=== PATIENT | female | born 1975 | race Caucasian/White ===

== ENCOUNTER 2016-12-13 00:23 | Inpatient (IN) | payer OTHER ==
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
[2016-12-13 00:45] VITALS: BMI 20.4
[2016-12-13] MEDS ORDERED: DIPHTH,PERTUSS(ACELL),TET VAC 0.5 ML VIAL IM ONE (00:45)
[2016-12-13] MEDS ORDERED: BACITRACIN 15 GM TUBE TOPICAL OINTMENT TP ONE (00:46)
[2016-12-13 08:24] LABS: MCH 33.9 pg (25.7-33.7); MCHC 33.8 g/dl (32.0-36.0); MEAN CELL VOLUME 100.4 fl (80-96); MEAN PLT VOLUME 7.1 fl (7.5-11.1); PLATELET COUNT 395 K/MM3 (134-434); RDW 14.3 % (11.6-15.6); WHITE BLOOD COUNT 5.3 K/mm3 (4.0-10.0)
[2016-12-13] MEDS ORDERED: SODIUM CHLORIDE 0.9% 1000 ML INFUS.BAG IV ONE (08:37)
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
[2016-12-13 08:44] LABS: ALBUMIN 3.7 g/dl (3.4-5.0); ANION GAP 4 (8-16); BILIRUBIN,TOTAL 0.4 mg/dL (0.2-1.0); CALCIUM 8.6 mg/dL (8.5-10.1); CO2 29 mmol/L (21-32); CREATININE 0.6 mg/dL (0.55-1.02); GLUCOSE,RANDOM 77 mg/dL (74-106); SGOT/AST 21 U/L (15-37); SGPT/ALT 20 U/L (12-78); TOT PROT 7.7 g/dl (6.4-8.2)
[2016-12-13 08:45] LABS: ALK PHOS 55 U/L (45-117)
--- NOTE | 2016-12-13 08:58 | PDOC ---
*Physical Exam - Vital Signs Dr. Newton states Pt took a handful of pills from her pill bottle (Rx for quetiapine). On our count there are 61 pills left in the bottle, meaning 29 are gone. She filled the Rx on 12/09/16 and is supposed to be on a taper-on per the following schedule: 1 pill qBedtime for 5 days, then 1 pill bid for 5 days, then 1 pill qAM and 2 pills qBedtime indefinitely. Per this schedule she should only be missing 3-5 pills from the bottle but she is missing 29. Notably there are also #7 Klonopin 1mg pills in the bottle mixed in. Last Vital Signs Temp Pulse Resp BP Pulse Ox 91 H 14 88/53 96 12/13/16 07:35 12/13/16 07:35 12/13/16 07:35 12/13/16 07:35 <Liz Sanford - Last Filed: 12/13/16 12:37> - Vital Signs Last Vital Signs Temp Pulse Resp BP Pulse Ox 96 H 14 107/69 100 12/13/16 11:01 12/13/16 11:01 12/13/16 11:01 12/13/16 11:01 <Gloria Abdi - Last Filed: 12/13/16 13:43> Heart Score/ECG Review #1 General ECG Interpretation: Sinus Rhythm, Normal Rate (89), Normal Intervals, No acute ischemic changes Compared to previous ECG there are: No significant change 12/13/16 13:[address] elevation or depression. normal qtc 474 <Gloria Abdi - Last Filed: 12/13/16 13:43> ED Treatment Course - LABORATORY CBC & Chemistry Diagram: 12/13/16 08:15 12/13/16 08:20 <Liz Sanford - Last Filed: 12/13/16 12:37> - LABORATORY CBC & Chemistry Diagram: 12/13/16 08:15 12/13/16 08:20 - ADDITIONAL ORDERS Additional order review: Laboratory Results 12/13/16 12/13/16 12/13/16 08:20 08:20 08:15 Sodium 143 Potassium 4.1 Chloride 110 H D Carbon Dioxide 29 Anion Gap 4 L BUN 10 D Creatinine Cancelled 0.6 Creat Clearance w eGFR > 60 Random Glucose 77 Specific [place] Cancelled Calcium 8.6 Total Bilirubin 0.4 D AST 21 D ALT 20 D Alkaline Phosphatase 55 D Total Protein 7.7 Albumin 3.7 Urine HCG, Qual Negative Urine Butalbital Cancelled Ur Butalbital Confirm Cancelled Salicylates Opiates Screen Urine Opiates Screen Cancelled Meperidine Cancelled Urine Normeperidine Cancelled U Normeperidine GC/MS Cancelled Urine Codeine Cancelled U Codeine Confrm GC/MS Cancelled Urine Morphine Cancelled Morphine Confirm GC/MS Cancelled Urine Hydrocodone Cancelled Ur Hydrocodone (GC/MS) Cancelled Oxycodone Cancelled Urine Oxycodone Cancelled Ur Oxycodone GC/MS Cancelled Oxymorphone Confirm Cancelled U Oxycodone/Oxymorphon Cancelled Methadone Screen Ur Methadone Cancelled Ur Methadone Confirm Cancelled Ur Hydromorphone Cancelled Ur Hydromorphone (GC/MS) Cancelled Urine Propoxyphene Cancelled U Propoxyphene/M GC/MS Cancelled Acetaminophen Barbiturate Screen Ur Barbiturates Screen Cancelled Urine Barbiturates Cancelled Phencyclidine Screen Ur Phencyclidine (PCP) Cancelled Ur PCP Confirm (GC/MS) Cancelled Amphetamines Cancelled Amphetamines Grp GC/MS Cancelled Ur Amphetamines Screen Urine Amphetamine Cancelled Ur Amphetamines, Quant Cancelled Methamphetamine Cancelled Methamphetamine GC/MS Cancelled MDMA (Ecstasy) Screen Urine Amobarbital Cancelled Ur Amobarbital GC/MS Cancelled Urine Pentobarbital Cancelled U Pentobarbital GC/MS Cancelled Urine Phenobarbital Cancelled U Phenobarbital GC/MS Cancelled Urine Secobarbital Cancelled U Secobarbital GC/MS Cancelled Urine Alprazolam Cancelled U [place]-Alprazolam GC/MS Cancelled Benzodiazepines Screen U Benzodiazepines Scrn Cancelled Urine Clonazepam Cancelled U 7-Amino Clonazep GC/MS Cancelled Ur Nordiazepam Cancelled Ur Nordiazepam GC/MS Cancelled Flurazepam Cancelled Flurazepam Confirm Cancelled Lorazepam Cancelled Urine Lorazepam Cancelled Ur Oxazepam Cancelled U Oxazepam Confm GC/MS Cancelled Urine Temazepam Cancelled Ur Temazepam (GC/MS) Cancelled Urine Triazolam Cancelled Ur Triazolam (GC/MS) Cancelled Meperidine (GC/MS) Cancelled Ur Meperidine Cancelled Cocaine Screen Cocaine & Metabolite Cancelled Urine Cocaine Cancelled Benzoylecgonine Cancelled Cannabinoids Cancelled Urine Cannabinoids Cancelled U Marijuana (THC) Screen Urine Marijuana (THC) Cancelled Drug Test Comment Cancelled Alcohol, Quantitative Urine Ethyl Alcohol Cancelled 12/13/16 12/13/16 08:15 08:00 Sodium Potassium Chloride Carbon Dioxide Anion Gap BUN Creatinine Creat Clearance w eGFR Random Glucose Specific [place] Calcium Total Bilirubin AST ALT Alkaline Phosphatase Total Protein Albumin Urine HCG, Qual Urine Butalbital Ur Butalbital Confirm Salicylates < 4.0 Opiates Screen Negative Urine Opiates Screen Meperidine Urine Normeperidine U Normeperidine GC/MS Urine Codeine U Codeine Confrm GC/MS Urine Morphine Morphine Confirm GC/MS Urine Hydrocodone Ur Hydrocodone (GC/MS) Oxycodone Urine Oxycodone Ur Oxycodone GC/MS Oxymorphone Confirm U Oxycodone/Oxymorphon Methadone Screen Negative Ur Methadone Ur Methadone Confirm Ur Hydromorphone Ur Hydromorphone (GC/MS) Urine Propoxyphene U Propoxyphene/M GC/MS Acetaminophen < 2.000 L Barbiturate Screen Negative Ur Barbiturates Screen Urine Barbiturates Phencyclidine Screen Negative Ur Phencyclidine (PCP) Ur PCP Confirm (GC/MS) Amphetamines Amphetamines Grp GC/MS Ur Amphetamines Screen Negative Urine Amphetamine Ur Amphetamines, Quant Methamphetamine Methamphetamine GC/MS MDMA (Ecstasy) Screen Negative Urine Amobarbital Ur Amobarbital GC/MS Urine Pentobarbital U Pentobarbital GC/MS Urine Phenobarbital U Phenobarbital GC/MS Urine Secobarbital U Secobarbital GC/MS Urine Alprazolam U [place]-Alprazolam GC/MS Benzodiazepines Screen Negative U Benzodiazepines Scrn Urine Clonazepam U 7-Amino Clonazep GC/MS Ur Nordiazepam Ur Nordiazepam GC/MS Flurazepam Flurazepam Confirm Lorazepam Urine Lorazepam Ur Oxazepam U Oxazepam Confm GC/MS Urine Temazepam Ur Temazepam (GC/MS) Urine Triazolam Ur Triazolam (GC/MS) Meperidine (GC/MS) Ur Meperidine Cocaine Screen Positive Cocaine & Metabolite Urine Cocaine Benzoylecgonine Cannabinoids Urine Cannabinoids U Marijuana (THC) Screen Negative Urine Marijuana (THC) Drug Test Comment Alcohol, Quantitative 133.0 H* Urine Ethyl Alcohol 12/13/16 08:15 RBC 4.27 MCV 100.4 H MCHC 33.8 RDW 14.3 MPV 7.1 L D Neutrophils % No Result Required. Lymphocytes % No Result Required. - RADIOLOGY Radiology Studies Ordered: Category Date Time Status FACIAL BONES CT W/O CONTRAST [CT] Stat CT Scan 12/13/16 08:[address] WITHOUT CONTRAST [CT] Stat CT Scan 12/13/16 08:33 Completed KNEE 2 POS-LEFT [RAD] Stat Radiology 12/13/16 08:37 Completed - Medications Given in the ED: ED Medications Discontinued Medications Generic Name Dose Route Start Last Admin Trade Name Freq PRN Reason Stop Dose Admin Sodium Chloride 1,000 ml 12/13/16 08:37 12/13/16 08:46 Normal Saline - IV 12/13/16 08:38 1,000 ml ONCE ONE Administration <Gloria Abdi - Last Filed: 12/13/16 13:43> Medical Decision Making - Medical Decision Making 12/13/16 09:02 Spoke with Poison Brilliandeer Lopper Christina. Questiapine: TUBE KNITTER depression, seizures, QTc prolongation, hypotension. Clonazepam: TUBE KNITTER depression, respiratory depression. Treatment is TUBE KNITTER and supportive, seizure precautions. If quetiapine is ER the patient should be watched for 12h. If quetiapine is not ER she should be watched until asymptomatic. <Liz Sanford - Last Filed: 12/13/16 12:37> *DC/Admit/Observation/Transfer <Sanford,Liz - Last Filed: 12/13/16 12:37> - Discharge Dispostion Decision to Admit order Date/Time: Decision to Admit Order Category Date Time Status Decision to Admit to Hospital Routine Admission 12/13/16 13:01 Active <Gloria Abdi - Last Filed: 12/13/16 13:43> Diagnosis at time of Disposition: Psychosis, Overdose, Substance abuse - Discharge Dispostion Condition at time of disposition: Guarded - Referrals Referrals: STAFF,NOT ON [Primary Care Provider] - - Patient Instructions - Post Discharge Activity
[2016-12-13 08:59] LABS: SALICYLATE < 4.0 mg/dl (0.0-30.0)
[2016-12-13 09:05] LABS: URINE MARIJUANA THC NEGATIVE ng/ml (CUTOFF=50)
[2016-12-13 10:57] LABS: BASOPHIL (MANUAL) 4 % (0-2.0); PLATELET ESTIMATE ADEQUATE (NORMAL); TOTAL CELLS COUNTED 100
[2016-12-13] MEDS ORDERED: DEXTROSE 5%-NORMAL SALINE 1,000 ML IV SCH (14:00)
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
[2016-12-13] MEDS ORDERED: HEPARIN NA (PORCINE) 5,000 UNITS/ML 1ML VIAL SQ SCH (14:15)
[2016-12-13] MEDS ORDERED: FOLIC ACID INJECTION - 1 MG, THIAMINE HCL 100 MG, MULTIVIT INJECTION ADULT 10 ML in SOD... IVPB ONE (20:38)
[2016-12-13] MEDS: BACITRACIN 15 GM TUBE TOPICAL OINTMENT TP SCH (21:36)
[2016-12-13] MEDS: levETIRAcetam XR 500 MG TAB PO SCH (21:36)
[2016-12-13] MEDS ORDERED: levETIRAcetam 500 MG/5 ML INJECTION VIAL IVPB SCH (22:00)
[2016-12-14 07:23] LABS: BASOPHIL 2.3 % (0-2.0); EOSINOPHIL 7.4 % (0-4.5); MCH 32.8 pg (25.7-33.7); MCHC 32.5 g/dl (32.0-36.0); MEAN CELL VOLUME 100.9 fl (80-96); MEAN PLT VOLUME 7.8 fl (7.5-11.1); NEUTROPHILS 37.4 % (42.8-82.8); PLATELET COUNT 349 K/MM3 (134-434); RDW 13.9 % (11.6-15.6); WHITE BLOOD COUNT 4.9 K/mm3 (4.0-10.0)
[2016-12-14 08:05] LABS: ALBUMIN 2.8 g/dl (3.4-5.0); ANION GAP 7 (8-16); BILIRUBIN,TOTAL 0.6 mg/dL (0.2-1.0); CO2 25 mmol/L (21-32); CREATININE 0.7 mg/dL (0.55-1.02); GLUCOSE,RANDOM 72 mg/dL (74-106); MAGNESIUM 2.1 mg/dL (1.8-2.4); PHOSPHOROUS 3.4 mg/dL (2.5-4.9); SGOT/AST 16 U/L (15-37); SGPT/ALT 16 U/L (12-78); TOT PROT 5.8 g/dl (6.4-8.2)
[2016-12-14 08:06] LABS: ALK PHOS 47 U/L (45-117)
[2016-12-14 08:19] LABS: HIV 1 & 2 AB NEGATIVE; HIV 1 AGp24 NEGATIVE
--- NOTE | 2016-12-14 08:39 | EKG ---
Test Reason : Blood Pressure : / mmHG Vent. Rate : 080 BPM Atrial Rate : 080 BPM P-R Int : 164 ms QRS Dur : 088 ms QT Int : 404 ms P-R-T Axes : 064 098 065 degrees QTc Int : 465 ms NORMAL SINUS RHYTHM POSSIBLE LEFT ATRIAL ENLARGEMENT RIGHTWARD AXIS RSR' OR QR PATTERN IN V1 SUGGESTS RIGHT VENTRICULAR CONDUCTION DELAY Confirmed by MD TESSY, JAMI ([id number]) on 12/14/2016 8:39:37 AM Referred By: Confirmed By:JAMI STILL MD
--- NOTE | 2016-12-14 08:40 | EKG ---
Test Reason : Blood Pressure : / mmHG Vent. Rate : 089 BPM Atrial Rate : 089 BPM P-R Int : 164 ms QRS Dur : 082 ms QT Int : 390 ms P-R-T Axes : 063 094 061 degrees QTc Int : 474 ms NORMAL SINUS RHYTHM POSSIBLE LEFT ATRIAL ENLARGEMENT RIGHTWARD AXIS Confirmed by MD TESSY, JAMI ([id number]) on 12/14/2016 8:40:08 AM Referred By: Confirmed By:JAMI STILL MD
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
[2016-12-14] MEDS ORDERED: PT OWN MED DRAWER 7, Y5N ONE (10:48)
[2016-12-14] MEDS: FOLIC ACID 1 MG TABLET (FP) PO SCH (10:51)
[2016-12-14] MEDS: levETIRAcetam XR 500 MG TAB PO SCH (10:51)
[2016-12-14] MEDS: THIAMINE HCL 100 MG TABLET (FP) PO SCH (10:51)
[2016-12-14] MEDS: BACITRACIN 15 GM TUBE TOPICAL OINTMENT TP SCH ×2 (12:25→21:54)
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
[2016-12-14] MEDS: ENOXAPARIN NA (PORCINE) 40 MG/0.4 ML DISP.SYRIN SQ SCH (17:23)
[2016-12-14] MEDS ORDERED: LORazepam 2 MG/ML SDV VIAL ONE (20:43)
[2016-12-14] MEDS: NICOTINE 21 MG/24 HOURS TOPICAL PATCH TD SCH (20:49)
[2016-12-14] MEDS ORDERED: chlordiazePOXIDE HCL 25 MG CAPSULE PO PRN (22:32)
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
[2016-12-14] MEDS: chlordiazePOXIDE HCL 25 MG CAPSULE PO SCH (23:02)
[2016-12-15] MEDS: chlordiazePOXIDE HCL 25 MG CAPSULE PO SCH ×2 (06:15→10:49)
[2016-12-15 07:35] LABS: BASOPHIL 1.5 % (0-2.0); EOSINOPHIL 5.8 % (0-4.5); MCH 33.2 pg (25.7-33.7); MCHC 33.2 g/dl (32.0-36.0); MEAN CELL VOLUME 100.1 fl (80-96); MEAN PLT VOLUME 7.9 fl (7.5-11.1); NEUTROPHILS 41.3 % (42.8-82.8); PLATELET COUNT 366 K/MM3 (134-434); RDW 13.8 % (11.6-15.6)
[2016-12-15 08:41] LABS: ALBUMIN 2.9 g/dl (3.4-5.0); ALK PHOS 48 U/L (45-117); ANION GAP 9 (8-16); BILIRUBIN,TOTAL 0.4 mg/dL (0.2-1.0); CALCIUM 8.2 mg/dL (8.5-10.1); CO2 25 mmol/L (21-32); CREATININE 0.6 mg/dL (0.55-1.02); GLUCOSE,RANDOM 92 mg/dL (74-106); PHOSPHOROUS 3.3 mg/dL (2.5-4.9); SGOT/AST 22 U/L (15-37); SGPT/ALT 18 U/L (12-78)
[2016-12-15] MEDS: FOLIC ACID 1 MG TABLET (FP) PO SCH (09:31)
[2016-12-15] MEDS: BACITRACIN 15 GM TUBE TOPICAL OINTMENT TP SCH (09:31)
[2016-12-15] MEDS: ENOXAPARIN NA (PORCINE) 40 MG/0.4 ML DISP.SYRIN SQ SCH (09:32)
[2016-12-15] MEDS: levETIRAcetam XR 500 MG TAB PO SCH (09:32)
[2016-12-15] MEDS: NICOTINE 21 MG/24 HOURS TOPICAL PATCH TD SCH (09:33)
[2016-12-15 10:44] VITALS: BP 120/60; PULSE 76; TEMP 98
[2016-12-15] MEDS: THIAMINE HCL 100 MG TABLET (FP) PO SCH (10:48)
--- NOTE | 2016-12-15 10:54 | EKG ---
Test Reason : Blood Pressure : / mmHG Vent. Rate : 083 BPM Atrial Rate : 083 BPM P-R Int : 156 ms QRS Dur : 080 ms QT Int : 388 ms P-R-T Axes : 050 089 052 degrees QTc Int : 455 ms NORMAL SINUS RHYTHM NORMAL ECG WHEN COMPARED WITH ECG OF 14-DEC-2016 08:43, NO SIGNIFICANT CHANGE WAS FOUND Confirmed by CHAY MARRUFO MD ([id number]) on 12/15/2016 10:53:33 AM Referred By: ANA BARRIENTOS Confirmed By:CHAY MARRUFO MD
--- NOTE | 2016-12-15 11:24 | EKG ---
Test Reason : Blood Pressure : / mmHG Vent. Rate : 080 BPM Atrial Rate : 080 BPM P-R Int : 172 ms QRS Dur : 086 ms QT Int : 402 ms P-R-T Axes : 058 093 055 degrees QTc Int : 463 ms NORMAL SINUS RHYTHM RIGHTWARD AXIS BORDERLINE ECG WHEN COMPARED WITH ECG OF 13-DEC-2016 20:56, NO SIGNIFICANT CHANGE WAS FOUND Confirmed by CHAY MARRUFO MD ([id number]) on 12/15/2016 11:24:37 AM Referred By: Confirmed By:CHAY MARRUFO MD
--- NOTE | 2016-12-15 11:24 | EKG ---
Test Reason : Blood Pressure : / mmHG Vent. Rate : 069 BPM Atrial Rate : 069 BPM P-R Int : 172 ms QRS Dur : 084 ms QT Int : 420 ms P-R-T Axes : 060 092 062 degrees QTc Int : 450 ms NORMAL SINUS RHYTHM RIGHTWARD AXIS BORDERLINE ECG WHEN COMPARED WITH ECG OF 14-DEC-2016 02:28, NO SIGNIFICANT CHANGE WAS FOUND Confirmed by CHAY MARRUFO MD ([id number]) on 12/15/2016 11:24:26 AM Referred By: Confirmed By:CHAY MARRUFO MD
--- NOTE | 2016-12-15 11:24 | EKG ---
Test Reason : Blood Pressure : / mmHG Vent. Rate : 071 BPM Atrial Rate : 071 BPM P-R Int : 178 ms QRS Dur : 080 ms QT Int : 422 ms P-R-T Axes : 069 098 072 degrees QTc Int : 458 ms NORMAL SINUS RHYTHM RIGHTWARD AXIS BORDERLINE ECG WHEN COMPARED WITH ECG OF 14-DEC-2016 06:31, NO SIGNIFICANT CHANGE WAS FOUND Confirmed by CHAY MARRUFO MD ([id number]) on 12/15/2016 11:24:18 AM Referred By: SHONA WALTON Confirmed By:CHAY MARRUFO MD
--- NOTE | 2016-12-15 11:25 | EKG ---
Test Reason : Blood Pressure : / mmHG Vent. Rate : 083 BPM Atrial Rate : 083 BPM P-R Int : 166 ms QRS Dur : 082 ms QT Int : 390 ms P-R-T Axes : 060 096 061 degrees QTc Int : 458 ms NORMAL SINUS RHYTHM RIGHTWARD AXIS BORDERLINE ECG WHEN COMPARED WITH ECG OF 13-DEC-2016 15:17, NO SIGNIFICANT CHANGE WAS FOUND Confirmed by CHAY MARRUFO MD ([id number]) on 12/15/2016 11:24:46 AM Referred By: Confirmed By:CHAY MARRUFO MD
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
[2016-12-15] MEDS ORDERED: chlordiazePOXIDE HCL 25 MG CAPSULE PO SCH (23:00)
[2016-12-16] MEDS ORDERED: chlordiazePOXIDE 5 MG CAPSULE PO SCH (23:00)
== END 2016-12-15 13:24 | disposition left against medical advice (07) | DRG 812 ==
LOC: JER 00:23 → SUPCPDRO 00:23 → JERBED 13:01 → J4W 19:06 → OBSVTOIN 12-15 07:55
PROVIDERS: ADMIT Internal Medicine; ATTEND Internal Medicine
DX: T43.592A Poisoning by other antipsychotics and neuroleptics, intentional self-harm, initial encounter (principal); F29 Unspecified psychosis not due to a substance or known physiological condition; S80.212A Abrasion, left knee, initial encounter; S01.81XA Laceration without foreign body of other part of head, initial encounter; F14.10 Cocaine abuse, uncomplicated; F10.230 Alcohol dependence with withdrawal, uncomplicated; F11.10 Opioid abuse, uncomplicated; F31.9 Bipolar disorder, unspecified; R56.9 Unspecified convulsions; Y92.89 Other specified places as the place of occurrence of the external cause; I95.9 Hypotension, unspecified; F41.9 Anxiety disorder, unspecified; Y93.89 Activity, other specified; W17.89XA Other fall from one level to another, initial encounter; Y92.411 Interstate highway as the place of occurrence of the external cause; Y99.8 Other external cause status; F17.210 Nicotine dependence, cigarettes, uncomplicated
CPT/HCPCS: 36415; 70450-TC; 70486-TC; 71010-TC; 73140-TC-LT; 73560-TC-LT; 80053; 80307; 83735; 84100; 84703; 85025; 87389; 93005; 93010; 99283-25; G0378